=== PATIENT | female | born 1940 | race Caucasian/White ===

== ENCOUNTER 2021-03-25 14:42 | Inpatient (IN) | payer MEDICARE, OTHER ==
[2021-03-25] MEDS ORDERED: methylPREDNISolone Sodium Succinate 125 MG/2 ML SDV IVPUSH ONE (14:49)
[2021-03-25] MEDS ORDERED: LORazepam 0.5 MG Tab PO ONE (14:56)
[2021-03-25] MEDS ORDERED: Dexamethasone 10 MG/ML SDV IVPUSH ONE (15:20)
[2021-03-25 16:16] LABS: CORONAVIRUS COVID-19 NAA NEGATIVE (NEGATIVE); RESPIRATORY SYNCYTIAL VIR NAA NEGATIVE (NEGATIVE)
[2021-03-25 16:19] LABS: CHLORIDE,CL 105 mmol/L (98-107); SODIUM,NA 144 mmol/L (136-145)
[2021-03-25 16:20] LABS: BASE EXCESS ARTERIAL 3 mmol/L (-2-3); BICARBONATE,ARTERIAL 28.2 mmol/L (22-26); O2 DELIVERY DEVICE NON REBR MASK; O2 SATURATION ARTERIAL 94 % (95-98); PCO2 ARTERIAL 44 mmHG (35-45); PO2 ARTERIAL 72 mmHG (80-105)
[2021-03-25 16:25] LABS: ANION GAP 12.2 meq/L (7-15)
[2021-03-25] MEDS: cefTRIAXone 1 GM in Sodium Chloride 0.9% 100 ML IV SCH (16:35)
[2021-03-25] MEDS ORDERED: Haloperidol Lactate 5 MG/ML SDV IVPUSH ONE (16:41)
[2021-03-25] MEDS ORDERED: LORazepam 2 MG/ML SDV IVPUSH ONE (16:41)
[2021-03-25] MEDS ORDERED: Iopamidol 755 Mg/ML 100 ML Bottle IVPUSH STA (16:45)
[2021-03-25] MEDS ORDERED: Sodium Chloride 0.9% 1,000 ML IV ONE (16:51)
[2021-03-25] MEDS: Azithromycin 500 MG in Sodium Chloride 0.9% 250 ML IV SCH (17:57)
[2021-03-25] MEDS ORDERED: Potassium Bicarbonate/Cit Ac 20 MEQ Effervescent Tab PO ONE ×2 (19:35→22:00)
[2021-03-25] MEDS ORDERED: LORazepam 2 MG/ML SDV ONE (20:35)
[2021-03-25] MEDS ORDERED: Acetaminophen 650 MG Supp RECTAL PRN (20:38)
[2021-03-25] MEDS ORDERED: Haloperidol Lactate 5 MG/ML SDV IVPUSH PRN (20:44)
[2021-03-25] MEDS ORDERED: Sodium Chloride 0.9% 1,000 ML IV SCH (21:00)
[2021-03-25] MEDS: Morphine 2 MG/ML SYRINGE IVPUSH PRN (21:30)
[2021-03-26] MEDS: LORazepam 2 MG/ML SDV IV PRN ×4 (01:10→23:57)
[2021-03-26] MEDS: Morphine 2 MG/ML SYRINGE IVPUSH PRN ×5 (03:33→23:57)
[2021-03-26] MEDS ORDERED: Potassium Bicarbonate/Cit Ac 20 MEQ Effervescent Tab PO ONE (06:00)
[2021-03-26 08:22] LABS: CHLORIDE,CL 105 mmol/L (98-107); SODIUM,NA 145 mmol/L (136-145)
[2021-03-26 08:23] LABS: ANION GAP 10.7 meq/L (7-15)
[2021-03-26] MEDS: Sodium Chloride 0.9% 10 ML Syringe FLUSH PRN ×5 (08:41→23:59)
[2021-03-26] MEDS: Atropine 1% Ophth Soln 5 ML BOTTLE SL PRN ×3 (13:34→20:29)
[2021-03-26] MEDS: cefTRIAXone 1 GM in Sodium Chloride 0.9% 100 ML IV SCH (16:19)
[2021-03-26] MEDS: Azithromycin 500 MG in Sodium Chloride 0.9% 250 ML IV SCH (17:02)
[2021-03-27] MEDS: Sodium Chloride 0.9% 10 ML Syringe FLUSH PRN ×4 (02:32→18:45)
[2021-03-27] MEDS: Morphine 2 MG/ML SYRINGE IVPUSH PRN ×4 (02:33→11:09)
[2021-03-27] MEDS: LORazepam 2 MG/ML SDV IV PRN (07:54)
[2021-03-27 08:26] LABS: ANION GAP 13.9 meq/L (7-15)
[2021-03-27] MEDS: Atropine 1% Ophth Soln 5 ML BOTTLE SL PRN ×2 (09:41→14:21)
[2021-03-27] MEDS ORDERED: LORazepam Conc Solution 2 MG/ML 30 ML Bottle PO PRN (12:30)
[2021-03-27] MEDS: Morphine Oral Concentrate 20 MG/ML 30 ML Bottle PO PRN ×2 (13:28→18:02)
[2021-03-27] MEDS ORDERED: Haloperidol Lactate 5 MG/ML SDV IVPUSH ONE (14:22)
[2021-03-27] MEDS ORDERED: Haloperidol Lactate 2 MG/ML Oral Soln 15 ML Bottle PO SCH (18:00)
[2021-03-27] MEDS ORDERED: Morphine 10 MG/ML Syringe IVPUSH ONE (18:37)
[2021-03-27] MEDS ORDERED: LORazepam 2 MG/ML SDV IVPUSH ONE (18:38)
[2021-03-27] MEDS ORDERED: Haloperidol Lactate 2 MG/ML Oral Soln 15 ML Bottle PO PRN (19:29)
[2021-03-27] MEDS ORDERED: Haloperidol Lactate 5 MG/ML SDV IVPUSH PRN (19:33)
[2021-03-27] MEDS ORDERED: LORazepam 2 MG/ML SDV IVPUSH PRN (19:34)
[2021-03-27] MEDS: Morphine 4 MG/ML Syringe IVPUSH SCH ×3 (19:43→23:47)
[2021-03-28] MEDS: Morphine 4 MG/ML Syringe IVPUSH SCH (02:32)
[2021-03-28] MEDS ORDERED: Sodium Chloride 0.9% 10 ML Syringe FLUSH SCH (08:00)
== END 2021-03-28 04:44 | disposition expired | DRG 291 ==
LOC: LL.ED 14:42 → LL.MS 20:35
PROVIDERS: ADMIT Emergency Medicine; ATTEND Emergency Medicine
DX: I11.0 Hypertensive heart disease with heart failure (principal); J96.01 Acute respiratory failure with hypoxia; R09.02 Hypoxemia; F02.81 Dementia in other diseases classified elsewhere, unspecified severity, with behavioral disturbance; I50.9 Heart failure, unspecified; R77.8 Other specified abnormalities of plasma proteins; Z51.5 Encounter for palliative care; Z66 Do not resuscitate; E87.6 Hypokalemia; E03.9 Hypothyroidism, unspecified; G30.9 Alzheimer's disease, unspecified; F32.A Depression, unspecified; K21.9 Gastro-esophageal reflux disease without esophagitis; R45.1 Restlessness and agitation; I95.9 Hypotension, unspecified; Z88.8 Allergy status to other drugs, medicaments and biological substances; Z79.890 Hormone replacement therapy; Z79.82 Long term (current) use of aspirin; Z79.899 Other long term (current) drug therapy; E78.00 Pure hypercholesterolemia, unspecified; Z88.6 Allergy status to analgesic agent; Z90.49 Acquired absence of other specified parts of digestive tract; Z20.822 Contact with and (suspected) exposure to COVID-19
CPT/HCPCS: 0241U; 36415; 36600; 71045; 71275; 80053; 82803; 83605; 83735; 83880; 84484; 85025; 85379; 85610; 87040; 93005; 93010; 96374; 96375; 96376; 99285; 99285-25; A9270-GY; J0456; J0696; J1100; J1630; J2060; J2270; J7050; Q9967